=== PATIENT | female | born 1965 | race Caucasian/White ===

== ENCOUNTER 2017-10-10 16:24 | Emergency (ER) | payer SELFPAY ==
[2015-09-10 14:36] VITALS: Wt 68.0 kg
[~2017-10-10 16:24] MED LIST: ACET650T40 PO; ALB17R INH; ALB18R INH; ALBU8.5H IH; ALBU8.5H12 IH; AMLO-99 PO; AMO500 PO; AMOX-556 PO; AMOX-559 PO; AZIT-1 PO; AZIT-18 PO; BUS5 PO; CEFD300C35 PO; CEPH500T7 PO; CHOL10005 PO; CIPR-214 PO; CLIN300C99 PO; CODE118S5 PO; CYAN25004 PO; DIP25 PO; FLUO-202 PO; FLUT16SP19 NS; FLUT1DIS27 IH; FOLI-68 PO; GUAI600T31 PO; HYDR-2966 PO; IBU800 PO; IBUP-56 PO; IPRA3AMP21 IH; IRON1TAB PO; LIND60LO5 TP; LIS10 PO; LISI20TA29 PO; LOR5/325 PO; LORA-941 PO; MAGN400T4 PO; MULT-1379 PO; NICO-218 TD; NICO1PAT45 TD; PARO-46 PO; PEN250 PO; PER PO; POTA-1 PO; PRE20 PO; PRED-1 PO; PRED20TA6 PO; PREN-136 PO; THIA100T2 PO; [UNRECOGNIZED DRUG - OTHER]
[2017-10-10 17:33] LABS: PLATELET COUNT, AUTOMATED 229 K/uL (150-450)
[2017-10-10 17:41] LABS: INR 0.91
[2017-10-10 18:00] VITALS: BP 141/91
--- NOTE | 2017-10-10 18:20 | RADIOLOGY IMAGING REPORT ---
[place] [facility] [place] Harlan Denny : 1965 MR: [id number] V: [id number] EXAM DATE: ORDERING PHYSICIAN: WERNER DEL VALLE TECHNOLOGIST: [facility] Patient: Harlan Denny : 1965 Visit/Account:[id number] Date of Sevice: 10/10/2017 EXAMINATION: Right hip 2 views Right femur 2 views. HISTORY: Fall. COMPARISON: None. FINDINGS: Bones of the right hip demonstrate normal alignment, without evidence of acute fracture or dislocatio n. There are mild degenerative changes at the right hip, with mild joint space narrowing and slight o steophyte formation. Remainder of the bony pelvis appears radiographically intact. Generalized osteopenia. The right femur appears intact on the dedicated femur views. No evidence of a femoral fracture. Taisha l alignment at the right hip and knee. Soft tissues are radiographically unremarkable. IMPRESSION: 1. No acute osseous findings at the right hip or along the right femur. 2. Osteopenia. 3. Mild degenerative changes at the right hip. Report Dictated By: Zhang Denny MD at 10/10/2017 6:13 PM Report E-Signed By: Zhang Denny MD at 10/10/2017 6:15 PM WSN:[id number]
--- NOTE | 2017-10-10 18:20 | RADIOLOGY IMAGING REPORT ---
FACILITY: [facility] - [place] PATIENT NAME: Harlan Denny : 1965 MR: [id number] V: [id number] EXAM DATE: ORDERING PHYSICIAN: WERNER DEL VALLE TECHNOLOGIST: Location: [facility] - [place], [place] Patient: Harlan Denny : 1965 Visit/Account:[id number] Date of Sevice: 10/10/2017 EXAMINATION: Right hip 2 views Right femur 2 views. HISTORY: Fall. COMPARISON: None. FINDINGS: Bones of the right hip demonstrate normal alignment, without evidence of acute fracture or dislocatio n. There are mild degenerative changes at the right hip, with mild joint space narrowing and slight o steophyte formation. Remainder of the bony pelvis appears radiographically intact. Generalized osteopenia. The right femur appears intact on the dedicated femur views. No evidence of a femoral fracture. Taisha l alignment at the right hip and knee. Soft tissues are radiographically unremarkable. IMPRESSION: 1. No acute osseous findings at the right hip or along the right femur. 2. Osteopenia. 3. Mild degenerative changes at the right hip. Report Dictated By: Zhang Denny MD at 10/10/2017 6:13 PM Report E-Signed By: Zhang Denny MD at 10/10/2017 6:15 PM WSN:[id number]
--- NOTE | 2017-10-10 18:30 | ER Report ---
History and Physical Time Seen By MD: 16:55 Hx. of Stated Complaint: PATIENT REPORTS THAT SHE FELL 1 WEEK AGO WHILST DRINKING. SHE IS CONCERNED ABOUT THE BRUISING AND SWELLING HPI/ROS CHIEF COMPLAINT: Right leg ecchymosis lateral aspect of the femur midshaft HISTORY OF PRESENT ILLNESS: Patient is a 51-year-old female here status post fall approximately 1 week prior. She is an active alcoholic and has drank for many years. She reportedly fell on a trailer hitch and reports worsening ecchymosis. Neurovascular exam is intact distal to the injury site. REVIEW OF SYSTEMS: Respiratory: [No cough, no dyspnea.] Cardiovascular: [No chest pain, no palpitations.] Gastrointestinal: [No vomiting, no abdominal pain.] Musculoskeletal: [No back pain.] Allergies: Coded Allergies: sulfamethoxazole (Verified Allergy, Severe, ANAPHYLAXIS, 06/23/16) trimethoprim (Verified Allergy, Severe, ANAPHYLAXIS, 06/23/16) Uncoded Allergies: sulfa (Allergy, Unknown, 12/20/15) Home Meds Active Scripts Albuterol Sulfate 90 Mcg/Act (PROAIR HFA 90 MCG/ACT) 8.5 Gm Hfa.aer.ad, 1-2 PUFF IH 3-4XD for wheeze, #1 Prov:BURTON LEMUS DO 02/16/15 Reported Medications Nicotine (NICOTINE PATCH) 1 Each Patch.dysq, 1 EACH TD QDAY 07/16/16 Thiamine Mononitrate (VITAMIN B-1) 100 Mg Tablet, 100 MG PO QDAY 07/16/16 Magnesium Oxide (MAG-OXIDE) 400 Mg Tablet, 400 MG PO QDAY 07/16/16 Folic Acid (FOLIC ACID) 1 Mg Tablet, 1 MG PO QDAY, TAB 07/16/16 Fluticasone Prop 50 Mcg Ns (FLONASE 50 MCG NS) 16 Gm Tyner.susp, 1-2 SPRAY NS QDAY, BOT 07/16/16 Cholecalciferol (Vitamin D3) (VITAMIN D3) 1,000 Unit Tablet, 1000 UNIT PO DAILY , TAB 07/13/16 Cyanocobalamin (Vitamin B-12) (Vitamin B12) 2,500 Mcg Tablet, 2000 MCG PO DAILY 07/12/16 Ibuprofen (IBUPROFEN) 200 Mg Tablet, 2 TAB PO PRN, TAB 06/11/16 Hydrochlorothiazide (HYDROCHLOROTHIAZIDE) 25 Mg Tablet, 0.5 TAB PO QDAY, TAB TAKE HALF OF A 25MG TABLET (12.5MG) EVERY DAY 02/20/16 Paroxetine Hcl (PAROXETINE HCL) 20 Mg Tablet, 40 MG PO QHS 02/20/16 Lisinopril (LISINOPRIL) 20 Mg Tablet, 10 MG PO QDAY, TAB 02/20/16 Mv, Min #36/Iron,Carbonyl/Fa (GERITOL COMPLETE TABLET) 1 Each Tablet, 1 EACH PO QDAY 09/09/15 Past Medical/Surgical History Hypertension, irregular heartbeat, asthma, pneumonia, alcohol abuse, Hx Smoking: Yes Smoking Status: Current: Every Day Smoker, Heavy Tobacco Smoker Exposure to Second Hand Smoke?: Yes Hx Substance Use Disorder: Yes Hx Alcohol Use: Yes Constitutional Vital Sign - Last 24 Hours 10/10/17 10/10/17 10/10/17 10/10/17 16:49 16:52 16:54 17:00 Temp 98.0 Pulse 103 98 Resp 20 B/P (MAP) 163/98 (119) 151/105 (120) Pulse Ox 95 89 O2 Delivery Room Air 10/10/17 10/10/17 17:54 18:00 Pulse 95 B/P (MAP) 141/91 (108) Pulse Ox 90 Physical Exam General Appearance: The patient is alert, has no immediate need for airway protection and no current signs of toxicity. NAD Musculoskeletal: Neck: Neck is supple and non tender. Extremities have full range of motion, + TTP right lateral thigh mid femur with overlying hematoma and ecchymosis Skin: + ecchymosis of the right lateral thigh DIFFERENTIAL DIAGNOSIS: After history and physical exam differential diagnosis was considered for fracture, contusion, hematoma, ecchymosis, bleeding dyscrasia , altered synthetic liver function secondary to alcoholism. Medical Decision Making Data Points Result Diagram: 10/10/17 1707 10/10/17 1707 Laboratory Hematology Test 10/10/17 17:07 Red Blood Count 3.53 M/uL (4.17-5.56) Mean Corpuscular Volume 106.1 fL (80.0-96.0) Mean Corpuscular Hemoglobin 37.3 pg (26.0-33.0) Mean Corpuscular Hemoglobin Concent 35.2 g/dL (32.0-36.0) Red Cell Distribution Width 14.3 % (11.5-14.5) Mean Platelet Volume 7.4 fL (7.2-11.1) Neutrophils (%) (Auto) 57.0 % (39.4-72.5) Lymphocytes (%) (Auto) 36.7 % (17.6-49.6) Monocytes (%) (Auto) 5.2 % (4.1-12.4) Eosinophils (%) (Auto) 0.4 % (0.4-6.7) Basophils (%) (Auto) 0.7 % (0.3-1.4) Nucleated RBC Relative Count (auto) 0.1 /100WBC Neutrophils # (Auto) 3.0 K/uL (2.0-7.4) Lymphocytes # (Auto) 2.0 K/uL (1.3-3.6) Monocytes # (Auto) 0.3 K/uL (0.3-1.0) Eosinophils # (Auto) 0.0 K/uL (0.0-0.5) Basophils # (Auto) 0.0 K/uL (0.0-0.1) Nucleated RBC Absolute Count (auto) 0.01 K/uL Peripheral Blood Smear No Y/N Prothrombin Time 12.2 seconds (12.0-14.4) Prothromb Time International Ratio 0.91 Activated Partial Thromboplast Time 27 seconds (23-35) Sodium Level 142 mmol/L (137-145) Potassium Level 3.7 mmol/L (3.5-5.0) Chloride Level 100 mmol/L (98-107) Carbon Dioxide Level 25 mmol/L (22-31) Blood Urea Nitrogen 12 mg/dl (7-18) Creatinine 0.60 mg/dl (0.52-1.04) Glomerular Filtration Rate Calc > 60.0 Random Glucose 75 mg/dl (75-110) Calcium Level 8.9 mg/dl (8.4-10.2) Total Bilirubin 0.6 mg/dl (0.2-1.3) Aspartate Amino Transf (AST/SGOT) 44 U/L (0-35) Alanine Aminotransferase (ALT/SGPT) 25 U/L (0-56) Alkaline Phosphatase 103 U/L (0-126) Total Protein 7.7 g/dl (6.3-8.2) Albumin 4.5 g/dl (3.5-5.0) Chemistry Test 6/16/18 17:07 White Blood Count 5.3 k/uL (4.5-11.0) Red Blood Count 3.53 M/uL (4.17-5.56) Hemoglobin 13.2 g/dL (12.0-16.0) Hematocrit 37.4 % (34.0-47.0) Mean Corpuscular Volume 106.1 fL (80.0-96.0) Mean Corpuscular Hemoglobin 37.3 pg (26.0-33.0) Mean Corpuscular Hemoglobin Concent 35.2 g/dL (32.0-36.0) Red Cell Distribution Width 14.3 % (11.5-14.5) Platelet Count 229 K/uL (150-450) Mean Platelet Volume 7.4 fL (7.2-11.1) Neutrophils (%) (Auto) 57.0 % (39.4-72.5) Lymphocytes (%) (Auto) 36.7 % (17.6-49.6) Monocytes (%) (Auto) 5.2 % (4.1-12.4) Eosinophils (%) (Auto) 0.4 % (0.4-6.7) Basophils (%) (Auto) 0.7 % (0.3-1.4) Nucleated RBC Relative Count (auto) 0.1 /100WBC Neutrophils # (Auto) 3.0 K/uL (2.0-7.4) Lymphocytes # (Auto) 2.0 K/uL (1.3-3.6) Monocytes # (Auto) 0.3 K/uL (0.3-1.0) Eosinophils # (Auto) 0.0 K/uL (0.0-0.5) Basophils # (Auto) 0.0 K/uL (0.0-0.1) Nucleated RBC Absolute Count (auto) 0.01 K/uL Peripheral Blood Smear No Y/N Prothrombin Time 12.2 seconds (12.0-14.4) Prothromb Time International Ratio 0.91 Activated Partial Thromboplast Time 27 seconds (23-35) Glomerular Filtration Rate Calc > 60.0 Calcium Level 8.9 mg/dl (8.4-10.2) Total Bilirubin 0.6 mg/dl (0.2-1.3) Aspartate Amino Transf (AST/SGOT) 44 U/L (0-35) Alanine Aminotransferase (ALT/SGPT) 25 U/L (0-56) Alkaline Phosphatase 103 U/L (0-126) Total Protein 7.7 g/dl (6.3-8.2) Albumin 4.5 g/dl (3.5-5.0) Coagulation Test 10/10/17 17:07 Prothrombin Time 12.2 seconds Prothromb Time International Ratio 0.91 Activated Partial Thromboplast Time 27 seconds EKG/Imaging Imaging EXAMINATION: Right hip 2 views Right femur 2 views. HISTORY: Fall. COMPARISON: None. FINDINGS: Bones of the right hip demonstrate normal alignment, without evidence of acute fracture or dislocation. There are mild degenerative changes at the right hip, with mild joint space narrowing and slight osteophyte formation. Remainder of the bony pelvis appears radiographically intact. Generalized osteopenia. The right femur appears intact on the dedicated femur views. No evidence of a femoral fracture. Normal alignment at the right hip and knee. Soft tissues are radiographically unremarkable. IMPRESSION: 1. No acute osseous findings at the right hip or along the right femur. 2. Osteopenia. 3. Mild degenerative changes at the right hip. ED Course/Re-evaluation ED Course Patient is a 51-year-old female here status post fall approximately 1 week ago on a trailer hitch striking her lateral right thigh with a hematoma and surrounding ecchymosis which was spreading. Concern was raised for altered synthetic function of the liver due to chronic alcoholism as the hematoma and ecchymosis have continued to spread of the past several days in spite of no repeated trauma. X-ray showed no acute fracture of the femur or hip. Hemoglobin and hematocrit were stable. Santiago wrap was applied and the patient was advised to rest, ice, elevate and avoid further injury to the site. Patient voiced understanding and was advised to avoid Tylenol due to concern for liver damage, ibuprofen or aspirin due to concern for continued bleeding and altered clotting function. Decision to Disposition Date: Oct 10, 2017 Decision to Disposition Time: 18:20 Depart Departure Latest Vital Signs Vital Signs Date Time Temp Pulse Resp B/P (MAP) Pulse Ox O2 Delivery O2 Flow Rate FiO2 10/10/17 18:00 141/91 (108) 10/10/17 17:54 95 90 10/10/17 16:49 98.0 20 Room Air Impression: Primary Impression: Ecchymosis Additional Impression: Hematoma Condition: Condition Unchanged Disposition: HOME OR SELF-CARE Patient Instructions: Ecchymosis (ED) Additional Instructions: Please apply an Santiago wrap to the bruising and swelling as well as ice. Please follow-up with your family doctor within the next several days for possible further evaluation of continued bruising in the setting of alcohol use. Please consider stopping alcohol use as this may be damaging your liver and your ability to clot normally. Problem Qualifiers WERNER DEL VALLE DO Oct 10, 2017 18:30
== END 2017-10-10 18:42 | disposition home or self-care (01) ==
LOC: ER 16:43
DX: S80.11XA Contusion of right lower leg, initial encounter (principal); M85.80 Other specified disorders of bone density and structure, unspecified site; F10.20 Alcohol dependence, uncomplicated
CPT/HCPCS: 36415; 82040; 82247; 82310; 82374; 82435; 82565; 82947; 84075; 84132; 84155; 84295; 84450; 84460; 84520; 85025; 85610; 85730; 99284